=== PATIENT | male | born 1970 | race Caucasian/White ===

== ENCOUNTER → 2017-07-02 | Outpatient (CLI) | payer MEDICAID, SELFPAY | PROVIDERS: Visit Provider Surgery | DX: Z12.11 Encounter for screening for malignant neoplasm of colon (principal); Z01.812 Encounter for preprocedural laboratory examination | CPT/HCPCS: 36415; 80048; 85025 ==

== ENCOUNTER → 2018-11-11 08:00 | Outpatient (POV) | payer BC, SELFPAY | PROVIDERS: PCP Nurse Practitioner Family; Visit Provider Dermatology | DX: Z00.00 Encounter for general adult medical examination without abnormal findings (principal) ==

== ENCOUNTER → 2020-01-01 10:48 | Outpatient (CLI) | payer BC, SELFPAY ==
--- NOTE | 2020-01-01 10:58 | XR_ITS ---
PROCEDURE: XR CHEST 2V CLINICAL HISTORY: Abnormal CXR COMPARISON: XR CHEST PORTABLE from 10/13/2019 FINDINGS: The cardiomediastinal silhouette and pulmonary vascularity are within normal limits. The lungs are clear without infiltrates, suspicious nodules, or pleural effusions. The questionable nodular opacity right upper lung field seen previously is not definitely seen on today's study. There is a partially calcified granuloma right lower lobe. No acute bony abnormalities. There are mild multilevel degenerate changes mid and lower thoracic spine. IMPRESSION: No acute findings. Dictated by: Dr. Balwinder Garcia MD 01/01/2020 11:[address] Balwinder Garcia MD in [place] 01/01/2020 11:14
== END ==
PROVIDERS: PCP Emergency Medicine; Visit Provider Physician Assistant
DX: R93.89 Abnormal findings on diagnostic imaging of other specified body structures (principal)
CPT/HCPCS: 71046

== ENCOUNTER → 2021-04-09 16:03 | Outpatient (CLI) | payer BC, SELFPAY | PROVIDERS: Visit Provider Nurse Practitioner Family | DX: Z20.822 Contact with and (suspected) exposure to COVID-19 (principal) | CPT/HCPCS: C9803; U0003; U0005 ==

== ENCOUNTER 2021-04-10 14:35 | Emergency (ER) | payer BC, SELFPAY ==
[2021-04-10 15:00] VITALS: BP 136/92; PULSE 63; RESP 20; TEMP 36.9; O2SAT 97; BMI 38.0
--- NOTE | 2021-04-10 15:25 | HMH.EDUTC ---
[facility] [place] Disposition Clinical Impression: Sinusitis Qualifiers: Sinusitis location: unspecified location Chronicity: unspecified Qualified Code(s): J32.9 - Chronic sinusitis, unspecified Disposition: Home, Self-Care Condition on Discharge: Good Instructions: Sinusitis, DI for Sinusitis Additional Instructions: *Monitor Temp, Over the counter Motrin or Tylenol as directed/as needed Tylenol every 4 hours and Motrin every 6 hours (as long as your family doctor has told you that you can take it) for fever or pain. and straight to ER if unable to lower temp less than 101.0 after medication given *Warm salt water gargles may help to soothe the throat *Throat Lozenges *Warm fluids like tea with honey may help to soothe the throat *Sleep elevated *Humidifier/Vaporizer *Flonase 2 sprays in each nostril daily but be aware that it may take 2-3 days before you notice improvement Follow up IMMEDIATELY for new or worsening symptoms or no Noticeable improvement over the next 48-72 hours. 911 for difficulty breathing or swallowing Prescriptions: Fluticasone Propionate [Flonase 50mcg nasal spray 16gm] 1 spr NS DAILY #1 each Transmission Status: Pending to [facility] Azithromycin [Z-Girish 250mg Tab] 250 mg PO DIRECTED #6 tab Transmission Status: Pending to [facility] Referrals: Dayna Persaud PA [Primary Care Provider] - As needed Forms: Work/School Release Time of Disposition: 15:41 Medical Decision Making - Jose Inquiry Pt receiving controlled substance: No Jose was queried for this patient: No Vital Signs: 04/10/21 15:00 Temperature 98.4 F Temperature Source Oral Pulse Rate [Right Brachial] 63 Respiratory Rate 20 Blood Pressure [Right Arm] 136/92 H Blood Pressure Mean [Right Arm] 106 Blood Pressure Source [Right Arm] Automatic Cuff Blood Pressure Position [Right Arm] Sitting 02 Sat by Pulse Oximetry 97 Oxygen Delivery Method Room Air Medical Decision Narrative: Last COVID test was yesterday and results came back this morning and was negative [facility] [place] HPI - General Stated complaint: Congestion, headache, SOA, cough Time Seen by Provider: 04/10/21 15:25 Mode of Arrival: Ambulatory Source of Information: Patient Limitations: No Limitations Description of Symptoms (Recalled from Triage Doc. by RN): PATIENT C/O HEADACHE, CONGESTION, COUGH, SNEEZING, CHILLS AND WEAKNESS X 1 WEEK. EXPOSED TO COVID THROUGH DAUGHTERS. REPORTS HE HAS HAD 3 COVID TEST THIS WEEK AND THEY WERE ALL NEGATIVE HEENT Symptoms (Recalled from RN notes): Yes Resp Symptoms (Recalled from RN notes): Yes Skin Symptoms (Recalled from RN notes): No MS Symptoms (Recalled from RN notes): No Functional Status (Recalled from RN notes): WNL - History of Present Illness Provider Complaint: Patient states that he was recently around both his daughters that have tested for COVID States that he has been tested 3 times over the last week and all has been negative States that he has been having headache, sore scratchy throat, sinus congestion and pressure along with body aches, States that his COVID tests has been negative but he was worried that something else was going on so he came in to get checked out - Related Data Previous Rx's Medication Instructions Recorded Azithromycin [Z-Girish 250mg Tab] 250 mg PO DIRECTED #6 tab 04/10/21 Fluticasone Propionate [Flonase 1 spr NS DAILY #1 each 04/10/21 50mcg nasal spray 16gm] Allergies Allergy/AdvReac Type Severity Reaction Status Date / Time Penicillins [PENICILLINS] Allergy Unknown I-RASH Verified 04/09/21 16:10 - Worker's Comp Is this a Worker's Comp case?: No [facility] History - Hepatitis A Screen Drug use history?: No High risk sexual behaviors?: No History of sexually transmitted infection?: No Currently employed?: No Childcare worker?: No Do you have indoor plumbing?: Yes Do you have electricity?: Yes Attestation statement:: This patient has been screened fo
[2021-04-10 15:48] VITALS: BP 136/92; PULSE 63; RESP 20; TEMP 36.9; O2SAT 97
== END 2021-04-10 15:56 | disposition home or self-care (01) ==
PROVIDERS: Emergency Provider Nurse Practitioner; PCP Physician Assistant
DX: J32.9 Chronic sinusitis, unspecified (principal)
CPT/HCPCS: 99202; G0463

== ENCOUNTER 2021-08-06 14:41 | Emergency (ER) | payer BC, SELFPAY ==
[2021-08-06 15:32] VITALS: BP 134/92; PULSE 82; RESP 18; TEMP 36.9; O2SAT 95; BMI 39.5
--- NOTE | 2021-08-06 15:59 | HMH.EDUTC ---
[facility] [place] Disposition Clinical Impression: Otitis media Qualifiers: Otitis media type: unspecified Laterality: left Qualified Code(s): H66.92 - Otitis media, unspecified, left ear Disposition: Home, Self-Care Condition on Discharge: Good Instructions: Middle Ear Infection, Azithromycin Additional Instructions: *Monitor Temp, Over the counter Motrin or Tylenol as directed/as needed Tylenol every 4 hours and Motrin every 6 hours (as long as your family doctor has told you that you can take it) for fever or pain. and straight to ER if unable to lower temp less than 101.0 after medication given *Warm salt water gargles may help to soothe the throat *Throat Lozenges *Warm fluids like tea with honey may help to soothe the throat *Sleep elevated *Humidifier/Vaporizer *Flonase 2 sprays in each nostril daily but be aware that it may take 2-3 days before you notice improvement Follow up IMMEDIATELY for new or worsening symptoms or no Noticeable improvement over the next 48-72 hours. 911 for difficulty breathing or swallowing You were tested for today for COVID19 your test result should be back in the next 24-48 hours, you may check your results on the [facility] My Health Portal if you have trouble logging on you may call [employer] support for assistance You was given a handout with instructions for Self Quarantine and Self isolation for while you wait on test results and what to do if they are positive If you are positive the Health Dept will be contacting you also Make sure to take your Vitamins Vit. C Vit D and Zinc if you can take them Prescriptions: Fluticasone Propionate [Flonase 50mcg nasal spray 16gm] 1 spr NS DAILY #1 each Transmission Status: Pending to [facility] Azithromycin [Z-Girish 250mg Tab] 250 mg PO DIRECTED #6 tab Transmission Status: Pending to [facility] Referrals: Mario Ca MD [Primary Care Provider] - As needed Forms: Work/School Release Time of Disposition: 16:06 Medical Decision Making - Jose Inquiry Pt receiving controlled substance: No Jose was queried for this patient: No Vital Signs: 08/06/21 15:32 Temperature 98.4 F Temperature Source Oral Pulse Rate [Left] 82 Respiratory Rate 18 Blood Pressure [Right Arm] 134/92 H Blood Pressure Mean [Right Arm] 106 02 Sat by Pulse Oximetry 95 Orders (Tests/Meds): ORDERS Category Date Time Status Covid-19 Nasal PCR ([facility]) Routine Lab 08/06/21 15:38 Received [facility] [place] HPI - General Stated complaint: covid test, symptoms Time Seen by Provider: 08/06/21 15:59 Mode of Arrival: Ambulatory Source of Information: Patient Limitations: No Limitations Description of Symptoms (Recalled from Triage Doc. by RN): pt c/o nasal drainage and sinus pressure. wants a covid test. HEENT Symptoms (Recalled from RN notes): Yes Resp Symptoms (Recalled from RN notes): No Skin Symptoms (Recalled from RN notes): No MS Symptoms (Recalled from RN notes): No Functional Status (Recalled from RN notes): wnl - History of Present Illness Provider Complaint: Patient state that he has been having sinus pain and pressure, pain in both ears and feels like he is having drainage in the back of his throat States that he feels like he may have sinus infection or ear infection again State that he also wanted to get tested for COVID - Related Data Previous Rx's Medication Instructions Recorded Azithromycin [Z-Girish 250mg Tab] 250 mg PO DIRECTED #6 tab 04/10/21 Fluticasone Propionate [Flonase 1 spr NS DAILY #1 each 04/10/21 50mcg nasal spray 16gm] Azithromycin [Z-Girish 250mg Tab] 250 mg PO DIRECTED #6 tab 08/06/21 Fluticasone Propionate [Flonase 1 spr NS DAILY #1 each 08/06/21 50mcg nasal spray 16gm] Allergies Allergy/AdvReac Type Severity Reaction Status Date / Time Penicillins [PENICILLINS] Allergy Unknown I-RASH Verified 04/09/21 16:10 - Worker's Comp Is this a Worker's Comp case?: No [facility] History - Hepatitis A Screen Drug us
[2021-08-06 16:10] VITALS: BP 134/92; PULSE 82; RESP 18; TEMP 36.9
== END 2021-08-06 16:11 | disposition home or self-care (01) ==
PROVIDERS: Emergency Provider Nurse Practitioner; PCP Emergency Medicine
DX: U07.1 COVID-19 (principal); H66.92 Otitis media, unspecified, left ear
CPT/HCPCS: 99202; C9803; G0463; U0003; U0005

== ENCOUNTER 2021-10-08 20:57 | Emergency (ER) | payer BC, SELFPAY ==
[2021-10-08 21:00] VITALS: BP 138/80; PULSE 80; RESP 16; TEMP 36.8; O2SAT 97; BMI 38.2
--- NOTE | 2021-10-08 21:11 | CT_ITS ---
PROCEDURE INFORMATION: Exam: CT Head Without Contrast Exam date and time: 10/08/2021 9:52 PM Age: 51 years old Clinical indication: Injury or trauma; Other: Tree limb hit RT temporal bone area; Blunt trauma (contusions or hematomas); Additional info: Hit in head with tree limb RT temporal TECHNIQUE: Imaging protocol: Computed tomography of the head without contrast. Radiation optimization: All CT scans at this facility use at least one of these dose optimization techniques: automated exposure control; mA and/or kV adjustment per patient size (includes targeted exams where dose is matched to clinical indication); or iterative reconstruction. COMPARISON: No relevant prior studies available. FINDINGS: Brain: No large territorial infarction. No hemorrhage. No mass effect or midline shift. Cerebral ventricles: No ventriculomegaly. Paranasal sinuses: Mucosal thickening of the paranasal sinuses. Mastoid air cells: Visualized mastoid air cells are well aerated. Bones/joints: No acute fracture. Soft tissues: No significant soft tissue abnormality. IMPRESSION: Mild paranasal sinus disease.
--- NOTE | 2021-10-08 21:11 | CT_ITS ---
PROCEDURE INFORMATION: Exam: CT Cervical Spine Without Contrast Exam date and time: 10/08/2021 9:55 PM Age: 51 years old Clinical indication: Injury or trauma; Other: Tree limb hit PT in RT temporal bone area; Blunt trauma; Additional info: Hit in head with tree limb TECHNIQUE: Imaging protocol: Computed tomography images of the cervical spine without contrast. Radiation optimization: All CT scans at this facility use at least one of these dose optimization techniques: automated exposure control; mA and/or kV adjustment per patient size (includes targeted exams where dose is matched to clinical indication); or iterative reconstruction. COMPARISON: CT HEAD/BRAIN WO CON 10/08/2021 9:52 PM FINDINGS: Bones/joints: Moderate multilevel degenerative changes. No acute fracture. Lungs: Lung apices are normal. Soft tissues: No soft tissue swelling. IMPRESSION: No acute findings.
--- NOTE | 2021-10-08 21:28 | HMH.EDGENADL ---
ED Disposition Clinical Impression: Concussion Qualifiers: Encounter type: initial encounter Loss of consciousness presence/duration: without LOC Qualified Code(s): S06.0X0A - Concussion without loss of consciousness, initial encounter Contusion of head Qualifiers: Encounter type: initial encounter Contusion of head detail: scalp Qualified Code(s): S00.03XA - Contusion of scalp, initial encounter Disposition: Home, Self-Care Condition on Discharge: Good Instructions: DI for Concussion Additional Instructions: advil/tyenol and see pcp if sx continue Referrals: Mario Ca MD [Primary Care Provider] - - Critical Care Critical Care Time: No Attestation: On 10/08/21, the high probability of a clinically significant, sudden or life threatening deterioration of the following system(s) required my full and direct attention, intervention and personal management. The time I documented below is in addition to time spent performing reported procedures but includes the following listed in this critical care notation. Medical Decision Making - Medical Records Medical records reviewed: Yes: I reviewed the patient's medical records. - Jose Inquiry Pt receiving controlled substance: No Vital Signs: 10/08/21 21:00 Temperature 98.2 F Temperature Source Oral Pulse Rate [Right Radial] 80 Respiratory Rate 16 Blood Pressure [Right Arm] 138/80 Blood Pressure Mean [Right Arm] 99 Blood Pressure Source [Right Arm] Automatic Cuff Blood Pressure Position [Right Arm] Sitting 02 Sat by Pulse Oximetry 97 Oxygen Delivery Method Room Air - Lab Data Lab results reviewed: Yes: I reviewed the patient's lab results. Orders (Tests/Meds): ED MEDICATIONS Discontinued Medications Generic Name Dose Route Start Last Admin Trade Name Marsha PRN Reason Stop Dose Admin Acetaminophen 1,000 mg 10/08/21 21:12 10/08/21 21:13 Acetaminophen 500mg Tab PO 10/08/21 21:13 1,000 mg ONCE ONE Administration Ibuprofen 600 mg 10/08/21 21:12 10/08/21 21:13 Ibuprofen 600 Mg Tablet PO 10/08/21 21:13 600 mg ONCE ONE Administration - CT Data CT Scan: Head, C-Spine Time Received: 22:[address] Reviewed: Yes: I have viewed the radiologist's interpretation Preliminary Findings: No Fracture Seen Medical Decision Narrative: pt with head trauma and concussion sx but stable exam and ct General Adult HPI - General Chief complaint: PAIN Stated complaint: Limb of tree hit head;abrasion Time Seen by Provider: 10/08/21 21:29 Mode of Arrival: Ambulatory Source of Information: Patient, Spouse, Medical Record Limitations: No Limitations Description of Symptoms (Recalled from ER Triage Doc. by RN): Pt reports cutting a tree limb at around 2pm today when the limb came back and struck him in the top of the head. Pt says he was able to finish working in the yard but havent felt quite right since. He denies neck pain, N/V, visual changes, or dizziness. Bruisng and a small abrasion to top of his head where the limb struck but no LAC. - History of Present Illness HPI narrative: hit in rt side of head this afternoon and does not feel right at this time - no focal neuro sx and no loc Onset (ago): hour(s) Location: head, neck Severity: moderate Associated symptoms: denies other symptoms Treatments prior to arrival: none - Related Data Allergies Allergy/AdvReac Type Severity Reaction Status Date / Time Penicillins [PENICILLINS] Allergy Unknown I-RASH Verified 08/14/21 14:41 [facility] History - Hepatitis A Screen Drug use history?: No High risk sexual behaviors?: No History of sexually transmitted infection?: No Currently employed?: No Childcare worker?: No Do you have indoor plumbing?: Yes Do you have electricity?: Yes Attestation statement:: This patient has been screened for Hepatitis A risk factors. 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
--- NOTE | 2021-10-08 21:53 | PC.NURSE ---
Pt gone to RAD
[2021-10-08 22:46] VITALS: BP 121/78; PULSE 67; RESP 16; TEMP 36.6; O2SAT 97
== END 2021-10-08 22:48 | disposition home or self-care (01) ==
PROVIDERS: Emergency Provider Emergency Medicine; PCP Emergency Medicine
DX: S06.0X0A Concussion without loss of consciousness, initial encounter (principal); S00.03XA Contusion of scalp, initial encounter; Z88.0 Allergy status to penicillin; W22.8XXA Striking against or struck by other objects, initial encounter; Y92.017 Garden or yard in single-family (private) house as the place of occurrence of the external cause
CPT/HCPCS: 70450; 72125; 99284

== ENCOUNTER 2024-02-02 14:13 | Emergency (ER) | payer BC, SELFPAY ==
[2024-02-02 14:35] VITALS: BP 129/85; PULSE 123; RESP 20; TEMP 36.8; O2SAT 96; BMI 36.6
--- NOTE | 2024-02-02 15:03 | ED_ITS ---
Discharge Plan Disposition Patient Disposition: Home, Self-Care Condition: Good Prescriptions Prescriptions: New reopespnbfxjvte-odggwsove-VJ [Bromfed DM] 2-30-10 mg/5 mL syrup 5 - 10 ml PO Q6H PRN (Reason: cold symptoms) Qty: 200 0RF Referrals Follow up/Referrals: Dayna Persaud PA [Primary Care Provider] - See instructions Activity Restrictions/Add. Instructions Additional Instructions/Restrictions: *Monitor Temp, Over the counter Motrin or Tylenol as directed/as needed Tylenol every 4 hours and Motrin every 6 hours (as long as your family doctor has told you that you can take it) for fever or pain. and straight to ER if unable to lower temp less than 101.0 after medication given *Warm salt water gargles may help to soothe the throat *Throat Lozenges? *Warm fluids like tea with honey may help to soothe the throat? *Sleep elevated *Humidifier/Vaporizer Follow up IMMEDIATELY for new or worsening symptoms or no Noticeable improvement over the next 48-72 hours. 911 for difficulty breathing or swallowing You were tested for today for ?Upper Respiratory Panel with COVID19 your test result should be back in the next 24-48 hours, you may check your results on the [facility] [employer] [facility] [employer] Health Portal Clinical Impressions Clinical Impression: Viral syndrome Stand Alone Forms Stand Alone Forms: Work/School Release Instructions Patient Instructions: COVID-19 Viral Test, DI for COVID-19 (Suspected or Confirmed ), Cough Discharge ED Provider: Carmen Krueger [facility] [place] HPI General Stated complaint: exposed to covid, home covid test +, runny nose Mode of Arrival: Ambulatory Source of Information: Patient Limitations: No Limitations Time Seen by Provider: 02/02/24 15:03 Description of Symptoms (Recalled from Triage Doc. by RN): PATIENT C/O THROAT BURNING AND CHEST CONGESTION THAT STARTED THIS MORNING. PATIENT RECENTLY EXPOSED TO COVID AND HAD A POSITIVE AT HOME COVID TEST HEENT Symptoms (Recalled from RN notes): Yes Resp Symptoms (Recalled from RN notes): Yes Skin Symptoms (Recalled from RN notes): No MS Symptoms (Recalled from RN notes): No Functional Status (Recalled from RN notes): WNL History of Present Illness Provider Complaint: Patient states that he was around coworker that tested positive for COVID on Saturday and this morning he started having some burning in his throat, cough and nasal congestion feels like he is having drainage in his throat moving into his chest States he took a home COVID test and it was positive so he came in to get checked and tested here Related Data Previous Rx's Medication Instructions Recorded bihhwnuxpnzlscq-hgttgezutpxcxrt-ZL 5 - 10 ml PO Q6H PRN cold symptoms 02/02/24 2 mg-30 mg-10 mg/5 mL oral syrup #200 mL (Bromfed DM) Allergies Allergy/AdvReac Type Severity Reaction Status Date / Time Penicillins [PENICILLINS] Allergy Unknown I-RASH Verified 10/13/21 10:04 Worker's Comp Is this a Worker's Comp case?: No [facility] Disclaimer: The information contained in this section may have been updated after the patient was seen, as this information can be updated by other users. Surgical History (Updated 02/02/24 @ 14:46 by Louise De La Cruz RN) History of tonsillectomy Social History Smoking Status: Never smoker alcohol intake: never substance use type: denies use current occupational status: employed Travel in the last 8 weeks: None ROS Obtained: Yes All systems reviewed & no additional complaints except as documented and Yes Systems reviewed as appropriate & no additional complaints except as documented Constitutional Constitutional: Reports system reviewed and no additional complaints, except as documented and Reports as per HPI ENT Ears, Nose, Mouth, and Throat: Reports system reviewed and no additional complaints, except as documented, Reports as per HPI, Reports nasal congestion, Reports nasal discharge and Reports sore throat Cardiovascular Cardiovascular: Reports system reviewed and no additional complaints, except as documented, Reports as per HPI and Denies dyspnea Respiratory Respiratory: Reports system reviewed and no additional complaints, except as documented, Reports as per HPI, Reports chest congestion, Reports cough and Denies dyspnea Gastrointestinal Gastrointestingal: Reports system reviewed and no additional complaints, except as documented and as per HPI Musculoskeletal Musculoskeletal: Reports system reviewed and no additional complaints, except as documented and Reports as per HPI Physical Exam General General appearance: alert and in no apparent distress ENT ENT exam: Present mucous membranes moist Expanded ENT Exam Nose exam: Absent sinus tenderness Throat exam: Present normal inspection Respiratory Respiratory exam: Present normal lung sounds bilaterally; Absent respiratory distress or wheezes Cardiovascular Cardiovascular exam: Present regular rate and tachycardia Abdominal Exam Abdominal exam: Present soft and normal bowel sounds; Absent distention or tenderness Neurological Exam Neurological exam: Present alert, oriented X3 and normal gait Medical Decision Making Jose Inquiry Pt receiving controlled substance: No Jose was queried for this patient: No Vital Signs: 02/02/24 14:35 Temperature 98.3 F Temperature Source Oral Pulse Rate [Left Brachial] 123 H Respiratory Rate 20 Blood Pressure [Left Arm] 129/85 Blood Pressure Mean [Left Arm] 99 Blood Pressure Source [Left Arm] Automatic Cuff Blood Pressure Position [Left Arm] Sitting 02 Sat by Pulse Oximetry 96 Oxygen Delivery Method Room Air Orders (Tests/Meds): ORDERS Category Date Time Status Covid-19 Nasal PCR ([facility]) Routine Lab 02/02/24 14:35 Received
[2024-02-02 15:19] VITALS: BP 129/85; PULSE 123; RESP 20; TEMP 36.8; O2SAT 96
== END 2024-02-02 15:23 | disposition home or self-care (01) ==
PROVIDERS: Emergency Provider Nurse Practitioner; PCP Physician Assistant
DX: U07.1 COVID-19 (principal); R07.0 Pain in throat; R05.9 Cough, unspecified; R09.82 Postnasal drip; R09.81 Nasal congestion
CPT/HCPCS: 87635; 99212; 99214; G0463

== ENCOUNTER 2024-02-11 15:41 | Emergency (ER) | payer BC, SELFPAY ==
[2024-02-11 15:50] VITALS: BP 133/83; PULSE 78; RESP 21; TEMP 36.9; O2SAT 96; BMI 39.5
--- NOTE | 2024-02-11 16:02 | EXP.UTC ---
Discharge Plan Disposition Patient Disposition: Home, Self-Care Condition: Good Referrals Follow up/Referrals: Dayna Persaud PA [Primary Care Provider] - See instructions Activity Restrictions/Add. Instructions Additional Instructions/Restrictions: Follow up with your Family Doctor Return if needed Straight to ER if any life threatening symptoms Clinical Impressions Clinical Impression: Viral syndrome Stand Alone Forms Stand Alone Forms: Work/School Release Instructions Patient Instructions: DI for Viral Syndrome Print Language Print Language: Mohawk Discharge ED Provider[place] [facility] [place] General Stated complaint: weakness from covid Mode of Arrival: Ambulatory Source of Information: Patient Limitations: No Limitations Time Seen by Provider: 02/11/24 16:02 Description of Symptoms (Recalled from Triage Doc. by RN): PATIENT REPORTS WEAKNESS, SWEATING A LOT, SOA, DIARRHEA, AND FEELING LIKE HE WAS GOING TO PASS OUT AT WORK YESTERDAY. PATIENT DENIES SYMPTOMS TODAY. PATIENT DIAGNOSED WITH COVID ON 01/30. PATIENT REQUESTING WORK NOTE HEENT Symptoms (Recalled from RN notes): No Resp Symptoms (Recalled from RN notes): No Skin Symptoms (Recalled from RN notes): No MS Symptoms (Recalled from RN notes): No Functional Status (Recalled from RN notes): WNL History of Present Illness Provider Complaint: Patient states that he was dx with COVID on 01/30 States he went back to work yesterday States that he was at work yesterday and he felt weak, sweaty and got a little winded walking up the steps States he also had a dizzy spell so they sent him home and advised him he needed to be seen again and put off work for a few days to give him a little longer to recover and he needed a note for his short term to kick back in States he is feeling better today and not having any symptoms Related Data Allergies Allergy/AdvReac Type Severity Reaction Status Date / Time Penicillins [PENICILLINS] Allergy Unknown I-RASH Verified 10/13/21 10:04 Worker's Comp Is this a Worker's Comp case?: No [facility] Disclaimer: The information contained in this section may have been updated after the patient was seen, as this information can be updated by other users. Surgical History (Updated 02/02/24 @ 14:46 by Louise De La Cruz RN) History of tonsillectomy Social History Smoking Status: Never smoker alcohol intake: never substance use type: denies use current occupational status: employed Travel in the last 8 weeks: None ROS Obtained: Yes All systems reviewed & no additional complaints except as documented and Yes Systems reviewed as appropriate & no additional complaints except as documented Constitutional Constitutional: Reports system reviewed and no additional complaints, except as documented, Reports as per HPI, Reports fatigue and Reports lethargy ENT Ears, Nose, Mouth, and Throat: Reports system reviewed and no additional complaints, except as documented and Reports as per HPI Cardiovascular Cardiovascular: Reports system reviewed and no additional complaints, except as documented and Reports as per HPI Respiratory Respiratory: Reports system reviewed and no additional complaints, except as documented, Reports as per HPI and Reports shortness of breath (felt winded yesterday feeling better today) Endocrine Endocrine: Reports fatigue Physical Exam General General appearance: alert and in no apparent distress ENT ENT exam: Present mucous membranes moist Respiratory Respiratory exam: Present normal lung sounds bilaterally; Absent respiratory distress or wheezes Cardiovascular Cardiovascular exam: Present regular rate, normal rhythm and normal heart sounds Neurological Exam Neurological exam: Present alert, oriented X3 and normal gait Medical Decision Making Jose Inquiry Pt receiving controlled substance: No Jose was queried for this patient: No Vital Signs: 02/11/24 15:50 Temperature 98.4 F Temperature Source Oral Pulse Rate [Left Brachial] 78 Respiratory Rate 21 Blood Pressure [Left Arm] 133/83 Blood Pressure Mean [Left Arm] 99 Blood Pressure Source [Left Arm] Automatic Cuff Blood Pressure Position [Left Arm] Sitting 02 Sat by Pulse Oximetry 96 Oxygen Delivery Method Room Air
[2024-02-11 16:16] VITALS: BP 133/83; PULSE 78; RESP 21; TEMP 36.9; O2SAT 96
== END 2024-02-11 16:20 | disposition home or self-care (01) ==
PROVIDERS: Emergency Provider Nurse Practitioner; PCP Physician Assistant
DX: R42 Dizziness and giddiness (principal); R53.1 Weakness; B34.9 Viral infection, unspecified; Z86.16 Personal history of COVID-19
CPT/HCPCS: 99212; 99213; G0463

== ENCOUNTER 2025-05-16 09:32 | Emergency (ER) | payer BC, SELFPAY ==
[2025-05-16 09:39] VITALS: BP 135/91; PULSE 63; RESP 16; TEMP 36.6; O2SAT 99; BMI 32.5
--- OUTSIDE RECORDS SUMMARY | 2025-05-16 09:40 | XMS_ITS | Clinical Summary ---
Author Organization [facility] Address [address] [place] [address], [address] [place] [address] Care Team Providers Care Pediatric Hospitalist Name Role Phone Unavailable Primary Care Provider Unavailabl e Social History Tobacco Use Types Packs/Day Years Used Date Smoking Tobacco: Never Assessed Sex and Gender Information Value Date Recorded Sex Assigned at Not on file Legal Sex Male 12:48 PM EDT Gender Identity Not on file Sexual Orientation Not on file Plan of Treatment Not on file
[2025-05-16 09:55] LABS: Coronavirus 19, PCR Not Detected (NotDetected); Influenza A, PCR Not Detected (NotDetected); Influenza B, PCR Not Detected (NotDetected)
--- NOTE | 2025-05-16 10:03 | HMH.EDGENADL ---
Discharge Plan Disposition Patient Disposition: Home, Self-Care Condition: Fair Referrals Follow up/Referrals: Dayna Persaud PA [Primary Care Provider, Medical] - See instructions Activity Restrictions/Add. Instructions Additional Instructions/Restrictions: You were seen in the emergency department for a viral infection. Please take Tylenol and Motrin on a schedule for the next 2 to 3 days. Please take 500 mg of Tylenol every 6 hours and 400 mg of ibuprofen every 6 hours. These medications can be taken together or they can be alternated. Please hydrate well, if symptoms worsen including elevated fever, worsening sinus pressure, or increased productive cough, please return to the emergency department for further evaluation or follow-up with your primary care provider. Clinical Impressions Clinical Impression: Upper respiratory infection Stand Alone Forms Stand Alone Forms: Work/School Release Instructions Patient Instructions: DI for Viral Upper Respiratory Infection in Adults Print Language Print Language: Icelandic Discharge ED Provider: Joseph Ornelas Adult HPI General Chief complaint: Upper Respiratory Infection Stated complaint: congestion, nasal burning, loss of taste Time Seen by Provider: 05/16/25 09:53 Mode of Arrival: Ambulatory Source of Information: Patient Description of Symptoms (Recalled from ER Triage Doc. by RN): Patient complaining of sinus pressure and burning around nose that he states he has had when he has had COVID in the past- started on Saturday05/14/25. History of Present Illness HPI narrative: This patient is a 54-year-old male with minimal reported past medical history who presents to the emergency department with 3 days of cough, congestion, intermittent sinus pressure. The patient reports that he had similar symptoms last year when diagnosed with COVID. On my initial evaluation the patient is comfortable, hemodynamically stable, satting well on room air, afebrile. He is able to tolerate p.o. intake and reports that he primarily came to the emergency department desiring a Z-Girish. Related Data Allergies Allergy/AdvReac Type Severity Reaction Status Date / Time Penicillins (PENICILLINS) Allergy Unknown I-RASH Verified 10/13/21 10:04 [facility] Disclaimer: The information contained in this section may have been updated after the patient was seen, as this information can be updated by other users. Surgical History (Updated 02/02/24 @ 14:46 by Louise De La Cruz RN) History of tonsillectomy Social History Smoking Status: Never smoker alcohol intake: never substance use type: denies use current occupational status: employed Travel in the last 8 weeks?: None Have you lived/traveled outside [place] in past 30 days?: No Contact w/someone who lives/traveled outside US past 30 days?: No Exposure to someone with infectious disease in past 14 days?: No Do you have a fever (greater than 100.4 F or 38 C)?: No Have you tested positive for COVID-19?: No Exposed to someone with COVID-19 in past 14 days?: No Do you have a sore throat?: No Do you have a cough?: No Do you have any weakness?: No Do you have any diarrhea?: No Are you experiencing any unusual bleeding?: No Do you have any muscle aches/pain?: No Do you have any abdominal pain?: No Are you experiencing loss of taste or smell?: No Other Medical History Have you received the Flu Vaccine for this season: No Have you received the Pneumonia Vaccine: No ROS Obtained: Yes All systems reviewed & no additional complaints except as documented Physical Exam General General appearance: alert and in no apparent distress Head Head exam: atraumatic and normocephalic Eye Eye exam: Present normal appearance, PERRL and EOMI ENT ENT exam: Present normal exam and normal external ear exam Neck Neck exam: Present normal inspection, full ROM and trachea midline Chest Chest inspection: Present normal inspection and symmetric chest wall rise; Absent tenderness Respiratory Respiratory exam: Absent respiratory distress Cardiovascular Cardiovascular exam: Present regular rate, normal rhythm and other (appears warm and well perfused) Abdominal Exam Abdominal exam: Absent distention or tenderness exam: Absent deferred Extremities Exam Extremities exam: Present normal inspection and full ROM Neurological Exam Neurological exam: Present alert and oriented X3 Psychiatric Psychiatric exam: Present normal affect Skin Skin exam: Present warm and dry Medical Decision Making Medical Records Medical records reviewed: Yes I reviewed the patient's medical records. Screening: Per USPSTF and CDC recommendations, given the prevalence of disease in our region, it is our hospital?s policy to screen for HIV and viral Hepatitis for all patients aged 18 and over and those with ongoing risk factors. Jose Inquiry Pt receiving controlled substance: No Jose was queried for this patient: No Vital Signs: 05/16/25 09:39 05/16/25 10:09 Temperature 98 F 98 F Temperature Source Oral Oral Pulse Rate 65 Pulse Rate [Right Brachial] 63 Respiratory Rate 16 16 Blood Pressure 117/81 Blood Pressure [Right Arm] 135/91 H Blood Pressure Mean [Right Arm] 105 Blood Pressure Source Automatic Cuff Blood Pressure Source [Right Arm] Automatic Cuff Blood Pressure Position Sitting Blood Pressure Position [Right Arm] Sitting 02 Sat by Pulse Oximetry 99 Oxygen Delivery Method Room Air Room Air Lab Data Lab results reviewed: Yes I reviewed the patient's lab results. Lab Results 05/16/25 09:35: SARS-CoV-2 (PCR) Not detected, Influenza Type A (PCR) Not detected, Influenza Type B (PCR) Not detected, RSV (PCR) Not detected, Rhinovirus (PCR) Detected Orders (Tests/Meds): ORDERS Category Date Time Status Mini Respiratory Panel Stat Lab 05/16/25 09:35 Completed Medical Decision Narrative: This patient is a 54-year-old male who presents to the ED with complaints of cough, congestion for 3 days. Differential diagnosis includes flu, COVID, RSV, pneumonia, COPD, asthma exacerbation, atypical pneumonia. Based on a careful physical exam and clinical history I think it is unlikely that the patient is suffering from pneumonia, COPD exacerbation, or asthma exacerbation due to the short duration of the illness and lack of wheezing, rhonchi, or dullness on ausculatory exam. Based on the patient's symptoms and disease course I think it is most likely they are suffering from a viral upper respiratory tract infection. The utility of viral testing was discussed with them, and ultimately we made the decision that it would not significantly alter treatment course and so it could be deferred. The patient was recommended symptomatic treatment, given careful return precautions, and was discharged home after verbalizing understanding of these precautions. Critical Care Critical Care Time Critical Care Time: No
[2025-05-16 10:09] VITALS: BP 117/81; PULSE 65; RESP 16; TEMP 36.6; O2SAT 97
== END 2025-05-16 10:09 | disposition home or self-care (01) ==
PROVIDERS: Emergency Provider Student in an Organized Health Care Education/Training Program; PCP Physician Assistant
DX: R09.81 Nasal congestion (principal); J06.9 Acute upper respiratory infection, unspecified; B34.8 Other viral infections of unspecified site
CPT/HCPCS: 87631; 99282; 99283